=== PATIENT | male | born 1940 | race Caucasian/White ===

== ENCOUNTER 2018-11-09 02:28 | Inpatient (IN) | payer OTHER ==
[~2018-11-09] VITALS: Ht 167.6 cm; Wt 71.4 kg
[2018-11-09] VITALS (7 sets, daily range): BP systolic 136–177; BP diastolic 49–65
[2018-11-09] MEDS ORDERED: HYDRALAZINE HC100 MG PO (02:49)
[2018-11-09] MEDS ORDERED: NORVASC5 MG PO (02:50)
[2018-11-09] MEDS ORDERED: OMEPRAZOLE20 M2 PO (02:50)
[2018-11-09] MEDS ORDERED: VITAMIN D-32000 UNIT (02:51)
[2018-11-09] MEDS ORDERED: ALLOPURINOL 10100 M1 PO (02:52)
[2018-11-09] MEDS ORDERED: LIPITOR80 MG PO (02:53)
[2018-11-09 02:57] LABS: HEMATOCRIT 31.2 % (42.0-52.0); HEMOGLOBIN 10.3 gm/dL (14.0-18.0); MCH 28.7 pg (26.0-34.0); MCHC 32.9 g/dL (28.0-37.0); MCV 87.2 fL (80.0-100.0); PLATELET COUNT 235 thou/uL (150-400); RBC 3.58 mil/uL (4.50-6.00); RDW 14.9 % (10.5-14.5); WBC 8.8 thou/uL (4.0-11.0)
[2018-11-09] MEDS ORDERED: CARVEDILOL3.125 MG (03:02)
[2018-11-09 03:03] LABS: ANION GAP 10 mmol/L (7-16); BUN 60 mg/dL (7-18); CALCIUM 9.2 mg/dL (8.5-10.1); CHLORIDE 103 mmol/L (98-107); CO2 25 mmol/L (21-32); CREATININE 2.2 mg/dL (0.7-1.3); GLUCOSE 210 mg/dL (74-106); POTASSIUM 4.3 mmol/L (3.5-5.1); SODIUM 138 mmol/L (136-145)
[2018-11-09 03:11] LABS: ALBUMIN 3.4 g/dL (3.4-5.0); SGOT 25 U/L (15-37); SGPT 24 U/L (30-65); TOTAL BILIRUBIN 0.6 mg/dL (<0.1-1.0); TOTAL PROTEIN 7.2 g/dL (6.4-8.2); TROPONIN-I <0.06 ng/mL (<0.06)
[2018-11-09 03:30] LABS: BURR CELLS 1+; PLATELET ESTIMATE NORMAL; SCHISTOCYTES FEW
[2018-11-09] MEDS ORDERED: LASIX 40 MG TAB40 M2 PO (04:30)
[2018-11-09] MEDS ORDERED: ASPIR 8181 MG PO (04:31)
[2018-11-09] MEDS ORDERED: FISH OIL 1,001000 M2 PO (04:31)
[2018-11-09] MEDS ORDERED: HUMALOG100 UNIT/1 SUBQ (04:33)
[2018-11-09] MEDS ORDERED: LANTUS100 UNIT/M SUBQ (04:35)
[2018-11-09] MEDS ORDERED: PROBIOTIC1 EAC1 PO (04:36)
[2018-11-09] MEDS ORDERED: IMDUR 30 MG TAB30 M1 PO (04:36)
--- NOTE | 2018-11-09 07:29 | NUR ---
Arrived from ER around 0400 accompanied by daughter and . Pt. arrived in BIPAP 15/04 rate of 12 ,FIo2 at 50%. O2 sat in the mid to upper 90's. Verbalized shortness of breath with exertion. SR with BBB per tele. SCD's applied. Admission welcome packet given to pt. and consents signed. Instructed about 1500 ml fluid restriction. Lasix given this am and has been voiding per urinal. Denies any pain. Cardiac consult will be called by US this am. Report to day RN.
--- NOTE | 2018-11-09 08:00 | EKG ---
[address] [place] [address] ELECTROCARDIOGRAM REPORT Name: ZAINAB FERREIRA Room #: 350-P ADM IN M.R.#: [id number] Admission: 11/09/18 Attend Phys: Pia Carroll MD Discharge: Date of : 36 Report #: [id number] THIS REPORT FOR: //name// [facility] ED Test Date: 2018-11-09 Test Time: 02:34:40 Pat Name: ZAINAB FERREIRA Department: Room: 350 Gender: M Bank Guard: Rogers TALAMANTES : 1940 Requested By: Bill Magaña Order Number: [id number] MD: Cuate Ward Measurements Intervals [place] Rate: 80 P: MD: QRS: -40 QRSD: 160 T: 93 QT: 449 QTc: 518 Interpretive Statements Sinus rhythm Left bundle branch block No previous ECG available for comparison Electronically Signed On 11-09-2018 8:00:33 [employer]END[employer] by Cuate Ward [email or web address] <ELECTRONICALLY SIGNED> By: Cuate Ward MD, [facility] 11/09/18 0800 0234 0234 Cuate Ward MD, FACC /EPI
[2018-11-09 10:14] LABS: CHOLESTEROL 127 mg/dL (<200); HDL CHOLESTEROL 45 mg/dL (>40); LDL CHOLESTEROL 55 mg/dL (<100); TC:HDL 2.8 Ratio (Not establshd); TRIGLYCERIDE 138 mg/dL (<150); VLDL 28 mg/dL (<40)
[2018-11-09] MEDS ORDERED: CARVEDILOL3.125 MG PO ×2 (10:44→10:57)
[2018-11-09] MEDS ORDERED: IRON325 PO (10:44)
--- NOTE | 2018-11-09 11:28 | 2DMMODE ---
[facility] [place] [address] 2 D/M-MODE ECHOCARDIOGRAM Name: ZAINAB FERREIRA Room #: 350-P [facility] IN M.R.#: [id number] Admission: 11/09/18 Attend Phys: Pia Carroll MD Discharge: Date of : 36 Date of Service: 11/09/18 1128 Report #: [id number] THIS REPORT FOR: //name// APPROVED REPORT Study performed: 11/09/2018 10:16:37 EXAM: Comprehensive 2D, Doppler, and color-flow Echocardiogram Status: routine BSA: 1.87 HR: 57 bpm BP: 150/49 mmHg Rhythm: NSR Other Information Study Quality: Adequate Indications Short of breath, CHF. Hx: CABG 2D Dimensions RVDd: 37.52 mm IVSd: 11.96 (7-11mm) LVOT Diam: 20.64 (18-24mm) LVDd: 53.72 mm PWd: 10.72 (7-11mm) LVDs: 40.17 (25-40mm) Aortic Root: 35.26 mm Volumes Left Atrial Volume (Systole) Single Plane 4CH: 68.62 mL Single Plane 2CH: 75.52 mL LA ESV Index: 43.00 mL/m2 Aortic Valve AoV Peak Jefe.: 2.04 m/s AO Peak Gr.: 16.58 mmHg LVOT Max P.54 mmHg AO Mean Gr.: 9.91 mmHg AO V2 Mean: 1.53 m/s LVOT Max V: 1.07 m/s AO V2 VTI: 55.92 cm PRASHANT Vmax: 1.75 cm2 Mitral Valve E/A Ratio: 1.1 MV Decel. Time: 194.06 ms [facility] [place] [place] [address] 2 D/M-MODE ECHOCARDIOGRAM Name: ZAINAB FERREIRA Room #: 350-[facility] IN .R.#: [id number] Admission: 11/09/18 Attend Phys: Pia Carroll MD Discharge: Date of : 36 Date of Service: 11/09/18 1128 Report #: [id number] E Max Jefe.: 1.26 m/s MV A Jefe.: 1.11 m/s MV PHT: 56.28 ms IVRT: 64.59 ms Pulmonary Valve PV Peak Jefe.: 1.43 m/s PV Peak Gr.: 8.20 mmHg Pulmonary Vein P Vein S: 0.76 m/s P Vein A: 0.28 m/s P Vein D: 0.69 m/s P Vein A Dur.: 147.6 msec P Vein S/D Ratio: 1.10 Tricuspid Valve TR Peak Jefe.: 2.96 m/s TR Peak Gr.: 35.09 mmHg Left Ventricle The left ventricle is normal size. Mild concentric left ventricular hypertrophy. Left ventricular systolic function is normal. LVEF is 55%. Moderate diastolic dysfunction is present (pseudonormal filling). Right Ventricle The right ventricle is normal size. The right ventricular systolic function is normal. Atria Left atrium is moderately dilated. The right atrium size is normal. Aortic Valve The Aortic valve is moderately sclerotic. No aortic regurgitation is present. There is no aortic valvular stenosis. Mitral Valve The mitral valve is mildly thickened. Mild to moderate mitral regurgitation. Tricuspid Valve The tricuspid valve is normal in structure. Mild tricuspid regurgitation. Estimated PAP is 35mmHg plus the right atrial pressure. Pulmonic Valve The pulmonary valve is normal in structure. Mild to moderate pulmonic [facility] [address] [place] [address] 2 D/M-MODE ECHOCARDIOGRAM Name: ZAINAB FERREIRA LAYNE Room #: 350-[facility] IN ..#: [id number] Admission: 11/09/18 Attend Phys: Pia Carroll MD Discharge: Date of : 36 Date of Service: 11/09/18 1128 Report #: [id number] regurgitation. Great Vessels The aortic root is normal in size. Ascending aorta is not well visualized. IVC is not well visualized. Pericardium There is no pericardial effusion. <Conclusion> The left ventricle is normal size. Mild concentric left ventricular hypertrophy. Left ventricular systolic function is normal. Moderate diastolic dysfunction is present (pseudonormal filling). The right ventricle is normal size. Left atrium is moderately dilated. The Aortic valve is moderately sclerotic. Mild to moderate mitral regurgitation. Mild tricuspid regurgitation. Estimated PAP is 35mmHg plus the right atrial pressure. <ELECTRONICALLY SIGNED> By: Julio Pink MD 11/09/18 1128 1128 1128 Julio Pink MD /INF
--- NOTE | 2018-11-09 13:15 | EKG ---
[place] [address] [facility] [place] [address] ELECTROCARDIOGRAM REPORT Name: ZAINAB FERREIRAO Room #: 350-P ADM IN M.R.#: [id number] Admission: 11/09/18 Attend Phys: Pia Carroll MD Discharge: Date of : 36 Report #: [id number] THIS REPORT FOR: //name// [facility] Test Date: 2018-11-09 Test Time: 11:25:58 Pat Name: ZAINAB FERREIRA Department: Room: 350 P Gender: M Blasting Contract Miner: Jessica MONAHAN : 1940 Requested By: Steffanie Arrieta Order Number: [id number] MD: Zach Larkin Measurements Intervals [place] Rate: 59 P: 45 [place]: 233 QRS: -15 QRSD: 165 T: 112 QT: 505 QTc: 501 Interpretive Statements Sinus rhythm Prolonged [place] interval Left bundle branch block Compared to ECG 11/09/2018 02:34:40 First degree AV block now present Electronically Signed On 11-09-2018 13:14:56 [employer] by Zach Larkin [email or web address] <ELECTRONICALLY SIGNED> By: Zach Larkin MD 11/09/18 1314 1125 1125 Zach Larkin MD /GENIE
--- NOTE | 2018-11-09 13:41 | NUR ---
INITIAL ASSESSMENT: Pt evaluated for d/c planning needs. Reviewed chart and spoke with nurse, pt and spouse. Pt is alert and oriented. Pt lives in house with spouse and was independent with ADL's prior to admission to the hospital. Pt uses no DME and has not had home health in the past. Pt's daughter is an RN. Pt plans on returning home on d/c from hospital. Will remain available to assist as [email or web address].
--- NOTE | 2018-11-09 16:43 | NUR ---
PT IS PROGRESSING TOWARD POC GOALS. PT HAS BEEN OFF BIPAP DURING THIS SHIFT WITH 02 VIA NC AT 4L 02 SATURATIONS ARE STABLE. MEDICATIONS GIVEN PER MAR, GOOD URINARY OUTPUT VIA URINAL. PT REQUIRES SBA WITH TRANSFERS AND AMBULATION. ECHOCARDIOGRAM DONE TODAY, AND NM STRESS TEST SCHEDULED FOR 11/10, PT TO BE NPO AFTER MIDNIGHT. PT'S BLOOD GLUCOSE LOW UPON 1600 FINGER STICK, PT TREATED PER MAR AND GIVEN 8 OZ APPLE JUICE. PT IS RESTING COMFORTABLY IN ROOM, CALL LIGHT WITHIN REACH.
[2018-11-09 19:11] LABS: GLYCOHEMOGLOBIN (HGB A1C) 6.5 % (4.8-5.6)
--- NOTE | 2018-11-10 03:40 | NUR ---
Pt. c/o neck pain ( positional ) at HS. Additional pillow and tylenol given with good relief. No chest or arm pain. O2 at 3.5 L/NC , shortness of breath with exertion. O2 sat in the mid to upper 90's. Pt. has concern about procedure today and questions answered. Kept NPO since UT for Stress ECHO. Diuresing well with lasix. Slept fair during the night. No other concerns voiced.
[2018-11-10 04:16] LABS: HEMATOCRIT 25.9 % (42.0-52.0); HEMOGLOBIN 8.8 gm/dL (14.0-18.0); MCH 29.7 pg (26.0-34.0); MCHC 34.1 g/dL (28.0-37.0); MCV 87.2 fL (80.0-100.0); RBC 2.97 mil/uL (4.50-6.00)
[2018-11-10 04:20] LABS: CALCIUM 8.5 mg/dL (8.5-10.1); CREATININE 2.3 mg/dL (0.7-1.3); MAGNESIUM 2.1 mg/dL (1.8-2.4); POTASSIUM 4.2 mmol/L (3.5-5.1); TROPONIN-I 0.08 ng/mL (<0.06)
[2018-11-10 04:35] VITALS: BP 136/50
--- NOTE | 2018-11-10 07:12 | NUR ---
Refused field stick IV on left AC to be changed. Explained policy and would prefer to keep current IV.
[2018-11-10 07:38] VITALS: BP 150/58
--- NOTE | 2018-11-10 08:12 | EKG ---
[place] [address] [facility] [place] [address] ELECTROCARDIOGRAM REPORT Name: ZAINAB FERREIRAO Room #: 350-P ADM IN M.R.#: [id number] Admission: 11/09/18 Attend Phys: Pia Carroll MD Discharge: Date of : 36 Report #: [id number] THIS REPORT FOR: //name// [facility] Test Date: 2018-11-10 Test Time: 07:50:10 Pat Name: ZAINAB FERREIRA Department: Room: 350 P Gender: M Extrusion Supervisor: ANGEL : 1940 Requested By: Steffanie Arrieta Order Number: [id number] MD: Zach Larkin Measurements Intervals [place] Rate: 61 P: 45 [place]: 223 QRS: -7 QRSD: 156 T: 105 QT: 480 QTc: 484 Interpretive Statements Sinus rhythm Prolonged [place] interval Left bundle branch block Compared to ECG 11/09/2018 11:25:58 No significant changes Electronically Signed On 11-10-2018 8:12:41 [employer]IPFITTER APPRENTICE by Zach Larkin [email or web address] <ELECTRONICALLY SIGNED> By: Zach Larkin MD 11/10/18811 0750 0750 Zach Larkin MD /GENIE
[2018-11-10 11:04] VITALS: BP 164/62
[2018-11-10 15:55] VITALS: BP 154/64
[2018-11-10 16:15] VITALS: BP 154/64
[2018-11-10 16:56] VITALS: BP 154/64
--- NOTE | 2018-11-10 16:57 | NUR ---
PT IS PROGRESSING TOWARD POC GOALS. PT NPO FOR NM STRESS TEST. PT RETURNED FROM STRESS TEST, DIET RESUMED. NO C/O OF PAIN, N/V. PT TITRATED OFF OF 02 NC, SATURATIONS STABLE ON RA AND WITH EXERTION. RECEIVED CALL FROM DR. MIKE INFORMING THIS RN THAT STRESS TEST WAS NON-ISCHEMIC IN NATURE- DISCHARGE OKAY FROM CARDIOLOGY STANDPOINT. DISCHARGE INSTRUCTIONS GIVEN TO PATIENT AND GONE OVER THROUGHLY WITH PT AND PT'S SIG. OTHER. PT DISCHARGED OFF OF UNIT AT 1652.
--- NOTE | 2018-11-12 09:41 | HC ---
[facility] [place] [address] CONSULTATION Name: ZAINAB FERREIRA Room #: 350-P [facility] IN M.R.#: [id number] Admission: 11/09/18 Attend Phys: Pia Carroll MD Discharge: 11/10/18 Date of : 36 Report #: [id number] THIS REPORT FOR: //name// CC: Jluis Carroll REASON FOR CONSULTATION: Chronic kidney disease. HISTORY OF PRESENT ILLNESS: An 78-year-old with past medical history of hypertension and coronary artery disease. He is status post CABG in 1995. He is known to have chronic kidney disease. He follows up with . His baseline creatinine is around 2.0. He is also known to have diabetes mellitus. He presented with shortness of breath, lower extremity edema and dyspnea on exertion. He was told at one point that his ejection fraction is around 35%; however, repeat echo revealed that his ejection fraction is back to within normal range. He did have a history of MRSA bacteremia in the past. I am being consulted to manage his diuresis. He points out to the fact that his symptoms started to get worse after his diuresis regimen was reduced by his primary care physician. MEDICATIONS: 1. Hydralazine. 2. Amlodipine. 3. Carvedilol. 4. Lasix. 5. Aspirin. 6. Insulin. 7. Omeprazole. 8. Atorvastatin. PAST MEDICAL AND SURGICALHISTORY: 1. Post CABG. 2. Diabetes mellitus. 3. Hypertension. 4. Coronary artery disease. 5. Prostate cancer. SOCIAL HISTORY: He lives with his . No drug or alcohol abuse. REVIEW OF SYSTEMS: GENERAL: No fever or chills. CARDIOVASCULAR: No chest pain; however, significant dyspnea on exertion and orthopnea. PULMONARY: No cough or hemoptysis. GASTROINTESTINAL: No nausea or vomiting. GENITOURINARY: No frequency or urgency. MUSCULOSKELETAL: Bilateral lower extremity edema. [facility] [address] [place] [address] CONSULTATION Name: ZAINAB FERREIRA Room #: 350-P [facility] IN [facility].#: [id number] Admission: 11/09/18 Attend Phys: Pia Carroll MD Discharge: 11/10/18 Date of : 36 Report #: [id number] NEUROLOGIC: No headache, no dizziness. HEMATOLOGIC: No epistaxis. No easy bruisability. PHYSICAL EXAMINATION: GENERAL: Alert, oriented, in no apparent distress. VITAL SIGNS: Temperature 36.7, pulse rate is 60, respiratory rate of 17 and blood pressure is 150/58. HEAD AND NECK: No jugular venous distention. No bruit, no thyromegaly. CHEST: Minimal crackles. CARDIOVASCULAR: No rub detected. ABDOMEN: Soft, nontender, with no hepatosplenomegaly. LOWER EXTREMITIES: With +1 edema. LABORATORY DATA: Laboratory values reviewed. Creatinine is 2.3. Hemoglobin is 8.8. ASSESSMENT, IMPRESSION, PLAN: 1. Chronic kidney disease. 2. Moderate diastolic heart failure. 3. Fluid overload. 4. Continue with the current diuretic regimen twice a day. 5. It is expected that he will have some worsening of his renal function with the diuresis. 6. Switch to oral diuretics in the morning. 7. Fluid and salt restrictions. 8. Daily body weights. 9. I will communicate this with his grey washer. <ELECTRONICALLY SIGNED> By: Benton Godoy MD 11/12/18 0941 0922 1021 Benton Godoy MD /nt
== END 2018-11-10 16:57 | disposition home or self-care (01) | DRG 291 ==
LOC: ER 02:28 → 3W 03:23 → EROBS 03:23 → 3W 03:46 → ENTRNSPT 11-10 16:39 → 3W 11-10 16:57
PROVIDERS: Emergency Medicine; Nurse Practitioner Family; ADMIT Internal Medicine
PROC: 5A09357 Assistance with Respiratory Ventilation, Less than 24 Consecutive Hours, Continuous Positive Airway Pressure (ICD-10-PCS; principal; 2018-11-09)
DX: I13.0 Hypertensive heart and chronic kidney disease with heart failure and stage 1 through stage 4 chronic kidney disease, or unspecified chronic kidney disease (principal); I50.33 Acute on chronic diastolic (congestive) heart failure; J96.20 Acute and chronic respiratory failure, unspecified whether with hypoxia or hypercapnia; J81.1 Chronic pulmonary edema; N18.4 Chronic kidney disease, stage 4 (severe); E78.5 Hyperlipidemia, unspecified; E11.22 Type 2 diabetes mellitus with diabetic chronic kidney disease; I25.10 Atherosclerotic heart disease of native coronary artery without angina pectoris; E87.70 Fluid overload, unspecified; D50.9 Iron deficiency anemia, unspecified; M62.84 Sarcopenia; Z95.1 Presence of aortocoronary bypass graft; Z85.46 Personal history of malignant neoplasm of prostate; Z87.891 Personal history of nicotine dependence; Z83.3 Family history of diabetes mellitus; Z79.4 Long term (current) use of insulin; Z79.82 Long term (current) use of aspirin; Z79.899 Other long term (current) drug therapy
CPT/HCPCS: 10879

== ENCOUNTER → 2019-02-16 | Outpatient (CLI) | payer OTHER ==
[~2019-02-16] VITALS: Ht 167.6 cm; Wt 65.8 kg
[~2019-02-16] MED LIST: ALLOPURINOL 10100 M1 PO; ASPIR 8181 MG PO; CARVEDILOL3.125 MG; CARVEDILOL3.125 MG PO; FISH OIL 1,001000 M2 PO; HUMALOG100 UNIT/1 SUBQ; HYDRALAZINE HC100 MG PO; IMDUR 30 MG TAB30 M1 PO; IRON325 PO; LANTUS100 UNIT/M SUBQ; LASIX 40 MG TAB40 M2 PO; LIPITOR80 MG PO; NORVASC5 MG PO; OMEPRAZOLE20 M2 PO; PROBIOTIC1 EAC1 PO; VITAMIN D-32000 UNIT
[2019-02-16 09:45] VITALS: BP 167/53
[2019-02-16 10:11] LABS: PROTIME 10.9 Seconds (9.3-11.4)
== END | disposition home or self-care (01) ==
LOC: SPEC 08:50
PROVIDERS: Radiology Vascular & Interventional Radiology
DX: T82.49XA Other complication of vascular dialysis catheter, initial encounter (principal); I11.0 Hypertensive heart disease with heart failure; I50.9 Heart failure, unspecified; E11.9 Type 2 diabetes mellitus without complications; E78.5 Hyperlipidemia, unspecified; Z95.1 Presence of aortocoronary bypass graft; Z85.46 Personal history of malignant neoplasm of prostate; Z87.891 Personal history of nicotine dependence; Z79.82 Long term (current) use of aspirin; Z79.899 Other long term (current) drug therapy; Z79.4 Long term (current) use of insulin; Z98.890 Other specified postprocedural states; Y83.8 Other surgical procedures as the cause of abnormal reaction of the patient, or of later complication, without mention of misadventure at the time of the procedure